=== PATIENT | female | born 1935 | race Caucasian/White ===

== ENCOUNTER 2019-04-19 23:32 | Observation (INO) | payer OTHER ==
[~2019-04-19] VITALS: Ht 157.5 cm; Wt 85.3 kg
[~2019-04-19 23:32] MED LIST: AMLODIPINE BES2.5 M1 PO; ASPIR-LOW81 M1 PO; ENALAPRIL20 MG PO; ESCITALOPRAM10 M1 PO; ESCITALOPRAM10 MG PO; GLUCOTROL5 MG PO; GOOD SENSE ASPI81 M3 PO; HYDROCOT25 MG PO; LANSOPRAZOLE30 MG PO; LOP50 PO; METFORMIN1000 MG PO; NOVOLOG FLEX100 U/M1 SC; ZES20 PO; ZOC10 PO
[2019-04-19 23:52] VITALS: Ht 157.5 cm; Wt 85.3 kg
--- NOTE | 2019-04-20 00:07 | NUR ---
PT BIB FAMILY TODAY WITH C/C OF HIGH BP. PER FAMILY, PT HAS HTN AND IS COMPLIANT WITH BP MEDS AT HOME. REPORTS A BP OF "236" AT HOME WITH HOME BP CUFF. PT REPORTS ONLY SYMPTOMS IS FEELING "SHAKEY." PT DENIES ANY CP, NO SOB, DENIES ANY DIZZINESS OR VISUAL CHANGES. PT IS AAOX4, RESP E/U, NAD NOTED. AWAITING MSE.
--- NOTE | 2019-04-20 00:39 | NUR ---
X RAY AT BEDSIDE
[2019-04-20 00:54] LABS: BASOPHIL % 0.4 % (0-2); PLATELET COUNT 181 x10^3mcL (130-400); RED CELL DISTRIBUTION WIDTH 13.1 % (11.5-14.5)
[2019-04-20 01:02] LABS: CALCIUM 10.2 mg/dL (8.5-10.1); CARBON DIOXIDE 27.4 mmol/L (21-32); CHLORIDE SERUM 99 mmol/L (98-107); CREATININE SERUM 0.9 mg/dL (0.6-1.0); GLUCOSE SERUM 197 mg/dL (74-106); POTASSIUM SERUM 4.6 mmol/L (3.5-5.1); SODIUM SERUM 136 mmol/L (136-145)
[2019-04-20 01:07] LABS: ALBUMIN 3.5 g/dL (3.4-5.0); ALKALINE PHOSPHATASE 133 U/L (46-116); ALT/SGPT 44 U/L (14-59); AST/SGOT 30 U/L (15-37); BILIRUBIN TOTAL 0.45 mg/dL (0.20-1.00); TOTAL PROTEIN, SERUM 7.2 g/dL (6.4-8.2)
--- NOTE | 2019-04-20 01:58 | NUR ---
PT AMBULATED TO BATHROOM WITH DAUGHTER AT BEDSIDE WITH MODERATE GAIT. PT EDUCATED ABOUT URINE SAMPLE. PT RETURNED WITH VERY SMALL URINE SAMPLE FOR DIP. EDUCATED ABOUT OTHER TEST NEEDED. PT GIVEN WATER POSTIONED FOR COMFORT WITH FAMILY AT BEDSIDE. NO S/S OF DISTRESS
--- NOTE | 2019-04-20 02:32 | NUR ---
PT GIVEN MEDICATION PER ORDER. PT DENIES HEADACHE NAUSEA, OR PAIN. FAMILY AT BEDSIDE. NO S/S OF DISTRESS.
--- NOTE | 2019-04-20 03:35 | NUR ---
MEDICATION GIVEN PER ORDER. POST ADMINISTRATION OF HYDRALAZINE 162/56 P 87 NO S/S OF DISTRESS. DENIES PAIN OR DIZZINESS.
--- NOTE | 2019-04-20 03:55 | NUR ---
REPORT GIVEN TO FARNAZ TO ASSUME CARE OF PT
--- NOTE | 2019-04-20 04:15 | NUR ---
RECEIVED PT FROM ED VIA WHEELCHAIR ACCOMPANIED BY NURSE, AND FAMILY MEMEMBERS. PT AAOX4, VINCENTIAN SPEAKING ONLY. MED-SURG PT, DENIES H/A OR DIZZINESS AT THIS TIME. PALPABLE PULSES TO BUE AND BLE, NO ENEMA NOTED. LUNG SOUNDS CTA ON RA. BREATHING EVEN AND UNLABORED. NO SIGNS OF ACUTE DISTRESS NOTED. ABD SOFT AND NONDISTENDED, ACTIVE BOWEL SOUNDS X4 QUAD. LAST BM WAS ON 04/19/19. DENIES N/V. PT STATES SHE IS INCONTINENT TO URINE AT TIMES. ABULATORY WITH ASSIST. IV SL TO RAC FLUSHING WELL, SITE WNL. BED AT LOWEST SETTING, CALL LIGHT WITHING REACH. WILL CONTINUE TO MONITOR.
[2019-04-20 04:30] VITALS: BP 168/46
[2019-04-20 05:07] LABS: microscopic required? NO
[2019-04-20 05:48] LABS: UA SPECIFIC GRAVITY <=1.005 (1.005-1.035); urine erythrocyte NEGATIVE (NEGATIVE)
[2019-04-20 06:14] LABS: BASOPHIL % 0.1 % (0-2); PLATELET COUNT 181 x10^3mcL (130-400); RED CELL DISTRIBUTION WIDTH 13.2 % (11.5-14.5)
--- NOTE | 2019-04-20 06:24 | NUR ---
PT RESTING IN BED, STATES HAVING DIFFICULTY FALLING ASLEEP. PROVIDED WARM BLANKET. BREATHING EVEN AND UNLABORED ON RA. NO SIGNS OF ACUTE DISTRESS NOTED. ALL NEEDS ASSESSED AND ATTENDED TO. IV SL TO LAC FLUSHING WELL. SITE FREE FROM REDNESS AND SWELLING. BED AT LOWEST SETTING, CALL LIGHT WITHING REACH. WILL ENDORSE CARE TO AM NURSE.
[2019-04-20 06:35] LABS: ALKALINE PHOSPHATASE 112 U/L (46-116); ALT/SGPT 48 U/L (14-59); AST/SGOT 34 U/L (15-37); BILIRUBIN TOTAL 0.5 mg/dL (0.20-1.00); CALCIUM 9.5 mg/dL (8.5-10.1); CARBON DIOXIDE 26.9 mmol/L (21-32); CHLORIDE SERUM 99 mmol/L (98-107); CREATININE SERUM 1.2 mg/dL (0.6-1.0); GLUCOSE SERUM 253 mg/dL (74-106); MAGNESIUM 1.7 mg/dL (1.8-2.4); POTASSIUM SERUM 4.9 mmol/L (3.5-5.1); SODIUM SERUM 134 mmol/L (136-145); TOTAL PROTEIN, SERUM 6.4 g/dL (6.4-8.2)
[2019-04-20 06:39] LABS: ALBUMIN 3.2 g/dL (3.4-5.0)
[2019-04-20 07:47] VITALS: BP 144/48
--- NOTE | 2019-04-20 08:00 | NUR ---
RECEIVED PATIENT WHO IS ALERT AND ORIENTED TIMES FOUR. OOB AND TO A CHAIR. PATIENT IS RESTLESS AT TIMES AND HAS BEEN PACING THE ROOM AND HAS BEEN NOTED WITH VITALS AT THIS TIME AT 96.1, 82, 144/48, 97% ON ROOM AIR. SOME TRACE EDEMA NOTED TO THE LOWER EXTREMTIES AND PATIENT HAS DISTENDED AND MODERATELY FIRM ABDOMEM. SHE HAS NOTED RALES TO THE UPPER LOBES AND HAS BEEN DENYIGN SOB OR CONGESTION AT THIS TIME. NOTED THAT PATEINT HAS BUN OF 24.0, CREATININE AT 1.2 AND THE [facility] MAGNESIUM OF 1.7. PATIENT HAS MILD CARDIOMEGALY O THE CHEST XRAY. PATIENT HAS A HISTORY OF DM AND HTN. PATIENT HAS NOT SHOWN ANY ACUTE GENERAL WEAKNESS. TOLERATED OOB AND DIET WELL. WILL CONTINUE TO MONITOR. PER ORDER FROM THE RESIDENT HELD THE BP MEDICATIONS.
[2019-04-20 10:35] VITALS: BP 144/48
--- NOTE | 2019-04-20 11:38 | NUR ---
GAVE PAPERWORK TO THE PATIENT AND ADVISED OF THE INDICATION FOR MEDICATIONS AND GAVE INSTRUCTIONS ON HTN, DIABETES AND HEALTH CARE UPKEEP. PATIENTS IV REMOVED AND ALL PAPERWORK SIGNED INDICATED. DISCHARGE TO [facility] WITH PACKET AND ALL BELONGINGS TO FAMILY AT BEDSIDE.
== END 2019-04-20 11:42 | disposition home health service (06) | DRG 305 ==
LOC: ED 23:32 → MU 04-20 02:41
PROVIDERS: Emergency Medicine; ADMIT Internal Medicine Pulmonary Disease
DX: I16.0 Hypertensive urgency (principal); I10 Essential (primary) hypertension; E11.9 Type 2 diabetes mellitus without complications; Z79.84 Long term (current) use of oral hypoglycemic drugs; Z79.82 Long term (current) use of aspirin
CPT/HCPCS: 83880; 97110-GP; G0378; J0360; J1644; Q0092